=== PATIENT | female | born 1970 | race Caucasian/White ===

== ENCOUNTER 2018-02-04 11:33 | Emergency (ER) | payer MEDICAID ==
[2018-02-04 12:01] VITALS: Ht 144.8 cm
[2018-02-04 15:10] VITALS: BP 110/60
== END 2018-02-04 15:10 | disposition home or self-care (01) ==
LOC: ED 11:33
DX: L02.412 Cutaneous abscess of left axilla (principal); E78.00 Pure hypercholesterolemia, unspecified
CPT/HCPCS: J1885; J2001

== ENCOUNTER 2018-02-06 14:00 | Emergency (ER) | payer MEDICAID ==
[2018-02-06 14:10] VITALS: Ht 144.8 cm
[2018-02-06 15:44] VITALS: BP 120/84
== END 2018-02-06 15:44 | disposition home or self-care (01) ==
LOC: ED 14:00
DX: Z48.01 Encounter for change or removal of surgical wound dressing (principal); E78.00 Pure hypercholesterolemia, unspecified